=== PATIENT | male | born 1990 | race African-American/Black ===

== ENCOUNTER 2016-09-08 21:00 | Emergency (ER) | payer SELFPAY ==
[2016-09-08 20:46] LABS: BASOPHILS 0.5 %; BASOPHILS ABSOLUTE 0.03 10/3/uL (0.0-0.16); EOSINOPHILS 3.7 %; EOSINOPHILS ABSOLUTE 0.23 10/3/uL (0.0-0.53); ER CBC TAT 0 Hrs 05 Mins; HEMATOCRIT 28.5 % (40.0-51.0); HEMOGLOBIN 8.5 g/dL (13.6-17.8); IMMATURE GRANULOCYTES 0.2 %; IMMATURE GRANULOCYTES ABSOLUTE 0.01 10/3/uL (0.0-0.11); LYMPHOCYTES 24.1 %; MEAN CORPUS HGB CONC 29.8 g/dL (32.0-36.0); MEAN CORPUSCULAR HEMOGLOB 18.3 pg (26.0-34.0); MEAN CORPUSCULAR VOLUME 61.4 fL (80-100); MEAN PLATELET VOLUME 7.5 fL (9.2-13.0); MONOCYTES 2.1 %; MONOCYTES ABSOLUTE 0.13 10/3/uL (0.21-1.20); NEUTROPHILS 69.4 %; NEUTROPHILS ABSOLUTE 4.33 10/3/uL (2.02-8.40); RBC DISTRIBUTION WIDTH 18.6 % (12.0-16.0); RED CELL COUNT 4.64 10/6/uL (4.7-6.1); WHITE BLOOD CELLS 6.2 10/3/uL (4.5-10.5)
[2016-09-08 20:47] LABS: PLATELET COUNT 759 10/3/uL (150-400)
[2016-09-08 20:48] LABS: MANUAL DIFF NO %
[2016-09-08 21:00] LABS: A/G RATIO 0.4 (0.7-1.9); ALBUMIN 1.7 G/DL (3.5-5.0); ALKALINE PHOSPHATASE 41 U/L (45-117); BUN (BLOOD UREA NITROGEN) 7 MG/DL (6-23); CALCIUM, SERUM 7.9 MG/DL (8.5-10.4); CHLORIDE, SERUM 104 MMOL/L (96-112); CO2 (CARBON DIOXIDE) 29 MMOL/L (24-34); CREATININE 0.71 MG/DL (0.70-1.30); GFR AFRICAN AMERICAN 149 ML/MIN (>=60); GFR NON AFRICAN AMERICAN 129 ML/MIN (>=60); GLOBULIN 4.3 G/DL (2.5-4.1); GLUCOSE, SERUM 118 MG/DL (60-99); POTASSIUM, SERUM 4.1 MMOL/L (3.5-5.3); SGOT(AST) 7 U/L (5-40); SGPT(ALT) 12 U/L (5-65); SODIUM, SERUM 139 MMOL/L (135-148); TOTAL BILIRUBIN 0.3 MG/DL (0-1.2)
[2016-09-08 21:06] LABS: MICROCYTES 4+ (>50/OIF) (0-5/OIF)
[2016-09-08 21:07] LABS: ANISOCYTOSIS 1+ (5-10/OIF) (0-5/OIF); OVALOCYTES 1+ (3-10/OIF) (0-2/OIF); SPHEROCYTES FEW (3-10/OIF)
[2016-09-08 21:08] LABS: GIANT PLATELET RARE; SCHISTOCYTES OCC (0-2/OIF); TEARDROP SHAPED RBCS OCC (0-2/OIF)
[2016-09-08 23:22] LABS: ASCORBIC ACID (UR NOT ORDER) 40 (NEG); BILIRUBIN, URINE NEGATIVE (NEG); ER URINALYSIS TAT 0 Hrs 19 Mins; KETONE, URINE NEGATIVE (NEG); LEUKOCYTE ESTERASE(NOT OR NEG (NEG); NITRITE (URINE) NEG (NEG); WBC (NOT ORDERED) (RFLEX) < 1 (0-5)
[2016-09-09] MEDS ORDERED: PROBIOTIC OTC PO (02:46)
[2016-09-09] MEDS ORDERED: [UNRECOGNIZED DRUG - OTHER] PO (02:47)
[2016-09-09] MEDS ORDERED: [UNRECOGNIZED DRUG - OTHER] PO (02:47)
[2016-09-09] MEDS ORDERED: DEVIL S CLAW PO (02:48)
[2016-09-09] MEDS ORDERED: BROMELAIN PO (02:48)
[2016-09-09] MEDS ORDERED: GRAPEFRUIT EXTRACT PO (02:49)
[2016-09-09] MEDS ORDERED: TUMERIC PO (02:50)
[2016-09-09] MEDS ORDERED: GARLIC OTC PO (02:50)
[2016-09-09] MEDS ORDERED: L-GLUTAMINE PO (02:51)
[2016-09-09] MEDS ORDERED: FERROUS SULFATE 45 MG PO (02:52)
== END 2016-09-09 04:11 | disposition home or self-care (01) ==
LOC: ER 21:00
PROVIDERS: Emergency Medicine
DX: A04.7 Enterocolitis due to Clostridium difficile (principal); D64.9 Anemia, unspecified; Z91.011 Allergy to milk products; Z79.899 Other long term (current) drug therapy
CPT/HCPCS: 80053; 81001; 83690; 85025; 87045; 87046; 87046-59; 87328; 87329; 87493; 87493-59; 87899; 87899-59; 89055; 99285